=== PATIENT | male | born 1950 | race Caucasian/White ===

== ENCOUNTER 2017-01-05 06:47 | Outpatient (CLI) | payer MEDICARE, OTHER | END 2017-01-05 06:48 | disposition critical access hospital (66) | LOC: EMS 06:47 | PROVIDERS: ATTEND Surgery | DX: R55 Syncope and collapse (principal); R11.0 Nausea; R61 Generalized hyperhidrosis; T63.441A Toxic effect of venom of bees, accidental (unintentional), initial encounter | CPT/HCPCS: A0425; A0429 ==

== ENCOUNTER 2017-01-05 07:16 | Observation (INO) | payer MEDICARE, OTHER ==
[2017-01-05] MEDS ORDERED: SODIUM CHLORIDE FLUSH 0.9% 10 ML SYRINGE IVP ONE (07:41)
--- NOTE | 2017-01-05 07:48 | ED Physician Documentation ---
History of Present Illness - Stated complaint Stated Complaint: BEE STING - CHILLS, NAUSEA,SHAKING - Chief complaint Chief Complaint: General - Additonal information Additional information: hx from pt 66 male pmhx polycythemia vera (WBC runs 27K HCT 50s) and Hep C he and his who is a nurse are visiting the [facility] on [place] - came from [place] he goes barefoot and this AM he stepped on a bee and was stung to the plantar surface on his L foto about 20-30 min later he developed sweats chills and nausea felt faint and so laid down on the ground no hives swelling or SOA his administered an epi pen s change EMS called and found pt afebrile HR 40s to 50s even after epi (baseline per pt and ) pt denies fever no recent cough vomit diarrhea or urinary sx no rash except bruise to RUE for 3 weeks and to RLE for many years he had a similar self limited episode of same sx yesterday without any bee stings and he has a hx of similar sx with vagal rxn to pain Review of Systems Constitutional: reports: Chills, Sweats. denies: Fever Throat: denies: Sore throat Cardiac: denies: Chest pain / pressure, Palpitations Respiratory: denies: Dyspnea, Cough GI: reports: Nausea. denies: Abdominal Pain, Vomiting, Diarrhea : denies: Dysuria Neurologic: reports: Near syncope. denies: Syncope Endocrine: denies: Easy bruising / bleeding Immunocompromised: denies: Immunocompromised PD PAST MEDICAL HISTORY - Past Medical History Past Medical History: Yes Other Past Medical History: polycytopenia - Present Medications Home Medications: Ambulatory Orders Medication Instructions Recorded Confirmed Aspirin Chewable [[facility] 01/05/17 Aspirin] Hydroxyurea [Droxia] 01/05/17 - Allergies Allergies/Adverse Reactions: Allergies Allergy/AdvReac Type Severity Reaction Status Date / Time No Known Drug Allergies Allergy Verified 01/05/17 07:28 - Social History Does the pt smoke?: No Smoking Status: Never smoker PD ED PE NORMAL - Vitals Vital signs reviewed: Yes (HRN normal for him apparently) - General General: Alert and oriented X 3 - HEENT HEENT: PERRL - Neck Neck: Supple, no meningeal sign - Cardiac Cardiac: RRR - Respiratory Respiratory: No respiratory distress, Clear bilaterally - Abdomen Abdomen: Soft, Non tender - Derm Derm: Other (flushed cheeks, aged ecchymosis RUE) - Neuro Neuro: Alert and oriented X 3 - Psych Psych: Normal mood Results - Vitals Vitals: Vital Signs - 24 hr 01/05/17 01/05/17 01/05/17 07:19 09:00 11:30 Temperature 36.3 C L Heart Rate 41 L 59 L 72 Respiratory 18 14 14 Rate Blood Pressure 177/83 H 154/63 H 159/66 H O2 Saturation 100 99 95 Oxygen O2 Source Room air - EKG (time done) 0815 Rate: Rate (enter#) Rhythm: NSR [place]: LAD Ischemia: ST elevation c/w ischemia (V1-V3 but with associated Q waves and coving without ST elev inferior leads) Other comments: Other comments (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) 0926 Rate: Rate (enter#) (44) Rhythm: Sinus bradycardia Ischemia: Other (ST elev with Q waves ant and coving without elev inf) Compare to prior EKG: Unchanged from prior EKG (no dynamic changes from EKG #1) - Labs Labs: Laboratory Tests 01/05/17 01/05/17 01/05/17 08:17 08:17 08:17 WBC 25.9 H RBC 6.39 H Hgb 18.4 H Hct 57.7 H MCV 90.2 MCH 28.7 MCHC 31.8 L RDW 18.4 H Plt Count 275 MPV 8.8 Neut # Not Reportable Lymph # Not Reportable Morris # Not Reportable Eos # Not Reportable Baso # Not Reportable Absolute Nucleated RBC Not Reportable Band Neuts % (Manual) 5 Neutrophils # (Manual) 20.5 H Lymphocytes # (Manual) 2.1 Monocytes # (Manual) 3.1 H Eosinophils # (Manual) 0.3 Nucleated RBCs Not Reportable WBC Morphology 1+ DOHLE BODIES Platelet Estimate NORMAL (130-450,000) Platelet Morphology RARE GIANT PLATELETS RBC Morph Micro Appear NORMAL APPEARANCE Sodium 138 Potassium 3.9 Chloride 100 L Carbon Dioxide 29 Anion Gap 9.0 BUN 14 Creatinine 0.9 Estimated GFR (MDRD) 84 L Glucose 117 H Lactic Acid Calcium 9.4 Troponin I 0.04 01/05/17 08:17 WBC RBC Hgb Hct MCV MCH MCHC RDW Plt Count MPV Neut # Lymph # Morris # Eos # Baso # Absolute Nucleated RBC Band Neuts % (Manual) Neutrophils # (Manual) Lymphocytes # (Manual) Monocytes # (Manual) Eosinophils # (Manual) Nucleated RBCs WBC Morphology Platelet Estimate Platelet Morphology RBC Morph Micro Appear Sodium Potassium Chloride Carbon Dioxide Anion Gap BUN Creatinine Estimated GFR (MDRD) Glucose Lactic Acid 1.5 Calcium Troponin I - Rads (name of study) CXR Radiology: See rad report (per rad patchy right basilar opacity) PD MEDICAL DECISION MAKING - ED course ED course: faxed EKG to Dr Benjamin at [facility] and he does not feel this is a STEMI, also pt sx have now resolved, will check another EKG for dynamic changes and likely obs for serial enzymes and echo EKG # 2 unchanged but 66 male with nausea and diaphoresis and near syncope and newly abn EKG (per who is a nurse) and no other good explanation merits further cardiac work up Departure - Departure Disposition: ED Place in Observation Clinical Impression: Abnormal EKG, Near syncope, Diaphoresis
--- NOTE | 2017-01-05 07:57 | XRAY Preliminary Report ---
Exam: XR Chest 2 View PA/LAT IMPRESSION: 1. Hyperinflation. 2. Patchy right basilar opacity, possibly focal bronchitis versus early consolidation. Findings are i n part accentuated by overlying prominent soft tissue. [facility] SITE ID: [id number]
--- NOTE | 2017-01-05 08:00 | XRAY Report ---
EXAM: CHEST RADIOGRAPHY EXAM DATE: 01/05/2017 07:48 AM. CLINICAL HISTORY: Sweats and shaking chills. COMPARISON: None. TECHNIQUE: 2 views. FINDINGS: Lungs/Pleura: Hyperinflation. Patchy right basilar opacity in part accentuated by overlying soft tiss ue. No vascular congestion. No pneumothorax. No pleural effusions. Mediastinum: Cardiomegaly. Mild aortic tortuosity. Other: Degenerative changes of the thoracic spine. IMPRESSION: 1. Hyperinflation. 2. Patchy right basilar opacity, possibly focal bronchitis versus early consolidation. Findings are i n part accentuated by overlying prominent soft tissue. [facility] Referring Provider Line: [phone] SITE ID: [id number]
[2017-01-05] MEDS: SODIUM CHLORIDE 0.9% 1,000 ML IV ONE ×2 (08:11→10:59)
[2017-01-05 08:39] LABS: BASOPHILS % (AUTO) 0.3 %; EOSINOPHILS % (AUTO) 0.4 %; HCT - HEMATOCRIT 57.7 % (42.0-52.0); HGB - HEMOGLOBIN 18.4 g/dL (14.0-18.0); LYMPHOCYTES % (AUTO) 6.9 %; MEAN CORPUSCULAR HEMOGLOBIN 28.7 pg (27.0-31.0); MEAN CORPUSCULAR HGB CONC 31.8 g/dL (32.0-36.0); MEAN CORPUSCULAR VOLUME 90.2 fL (80.0-94.0); MEAN PLATELET VOLUME 8.8 fL (7.4-11.4); MONOCYTES % (AUTO) 14.8 %; NEUTROPHILS % (AUTO) 77.6 %; RED BLOOD COUNT 6.39 10^6/uL (4.70-6.10); RED CELL DISTRIBUTION WIDTH 18.4 % (12.0-15.0); UNCORRECTED WHITE BLOOD COUNT 25.9 x10^3/uL; WHITE BLOOD COUNT 25.9 x10^3/uL (4.8-10.8)
[2017-01-05 08:42] LABS: CALCIUM 9.4 mg/dL (8.5-10.3); CREATININE 0.9 mg/dL (0.6-1.2); POTASSIUM 3.9 mmol/L (3.5-5.0)
[2017-01-05 09:41] LABS: BAND NEUTROPHILS % (MANUAL) 5 %; EOSINOPHILS % (MANUAL) 1 %; LYMPHOCYTES % (MANUAL) 8 %; NEUTROPHILS % (MANUAL) 74 %
[2017-01-05 09:42] LABS: NP AUTO DIFFERENTIAL? YES; NP MAN DIFFERENTIAL? NO; PLATELET ESTIMATE, MANUAL NORMAL (130-450,000) (NORMAL); PLATELET MORPHOLOGY RARE GIANT PLATELETS (NORMAL)
[2017-01-05 12:24] LABS: BILIRUBIN,URINE NEGATIVE (NEGATIVE)
[2017-01-05 12:26] LABS: UA CHARGE (STRIP ONLY) YES; UR CULTURE IF IND NOT INDICATED
[2017-01-05 13:13] LABS: CALCIUM 8.9 mg/dL (8.5-10.3); CREATININE 0.8 mg/dL (0.6-1.2); MAGNESIUM 1.7 mg/dL (1.7-2.8); POTASSIUM 3.9 mmol/L (3.5-5.0); TOTAL PROTEIN 8.1 g/dL (6.7-8.2)
[2017-01-05] MEDS ORDERED: ACETAMINOPHEN 325 MG TABLET PO PRN (13:37)
[2017-01-05] MEDS ORDERED: SODIUM CHLORIDE FLUSH 0.9% 10 ML SYRINGE IVP PRN (13:37)
[2017-01-05] MEDS ORDERED: MORPHINE 2 MG/ML SYRINGE IVP PRN (13:37)
[2017-01-05] MEDS ORDERED: NITROGLYCERIN SL 0.4 MG TABLET SL PRN (13:56)
[2017-01-05] MEDS ORDERED: ASPIRIN CHEW 81 MG TABLET PO ONE (13:56)
[2017-01-05] MEDS ORDERED: SODIUM CHLORIDE 0.9% 1,000 ML IV SCH (14:00)
[2017-01-05] MEDS ORDERED: PANTOPRAZOLE 40 MG VIAL IVP SCH (14:00)
[2017-01-05] MEDS ORDERED: SODIUM CHLORIDE FLUSH 0.9% 10 ML SYRINGE IVP SCH (14:00)
[2017-01-05] MEDS ORDERED: MAGNESIUM SULFATE 2 GRAM 50 ML IV ONE (15:40)
--- NOTE | 2017-01-05 17:19 | HISTORY & PHYSICAL EXAMINATION ---
DATE OF ADMISSION: 01/05/2017 CHIEF COMPLAINT: Lightheadedness, dizziness today. HISTORY OF PRESENT ILLNESS: The patient is a very pleasant 66-year-old gentleman who was spending the week [facility] on retreat with his when this morning he had stepped out of the bathroom and th ought he had stepped on a wasp and then became hot, flushed, feeling sick and lightheaded, pale and d iaphoretic. The patient's came into the room to assess him. She is a nurse, and instructed him t o lie down on the floor. She states he was cold, clammy, and pale. Knowing that he had stepped on a w asp, she thought this might have been a reaction to the wasp sting and gave him Epi. The patient stat es that after he received the EpiPen, he still continued to feel the same. His did call 911. Whe n 911 arrived, they evaluated him. Vital signs were stable. His blood sugar was within normal limits. The patient states that he had a normal breakfast that morning. He states that there have been no ch anges in his social activities. He had a normal night's sleep. He states that he had been not taking any new type of medication nor had he been around anybody who had been sick recently. SOCIAL HISTORY: The patient's social history does include smoking marijuana. He did state that he smo ked marijuana approximately a week prior to this episode. The patient thought that he might be a sosa le bit dehydrated since he had not drank a significant amount of water that morning. However, he has not drank that much in the past as well and never had an episode like this. PAST MEDICAL HISTORY: The patient's only significant medical history includes polycythemia and a past history of mild hepatitis C. 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 The patient did have a laminectomy back in July 2016 and every now and then does have pain down the left arm and the jaw with tingling; however, this was not a symptom of this particular episode. The p atient denied fever, denied cough, diarrhea, vomiting, or urinary symptoms. He had had a similar epis ode similar to this the day before without the bee sting. He did say that he has had some similar vag al reactions when he has had pain. The patient's brought him to the hospital for further evaluat ion. Of note, they are both visiting from [place] and staying at the [facility]. ALLERGIES: NO KNOWN DRUG ALLERGIES. HOME MEDICATIONS 1. Aspirin 81 mg chewable. 2. Hydroxyurea 100 mg a day. 3. Doxycycline 100 mg a day. Of note, the patient just recently increased his dosage of hydroxyurea to 100 mg a day, which started approximately 3 weeks ago. He was taking 50 mg 3 times a week. PAST MEDICAL HISTORY: Includes polycythemia, marijuana usage, ocular melanoma, history of hepatitis C , chronic upper neck and upper back pain. PAST SURGICAL HISTORY: Includes laminectomy. SOCIAL HISTORY: Includes no smoking. Occasional alcohol usage and marijuana several times a week. FAMILY HISTORY: The patient states that both his parents are , and one from a stroke. REVIEW OF SYSTEMS: The patient denies fever, sore throat, chest pain, pressure, palpitations, cough, abdominal pain, vomiting, or diarrhea. He is positive for chills and sweats and dizziness and nausea. A 10-system review was done and is negative with the exception as discussed in the HPI prior or in r eview of systems just given prior. PHYSICAL EXAMINATION CONSTITUTIONAL: The patient is alert, no acute distress. EYES: Pupils are equal, round, and react to light and accommodation. Conjunctivae and sclerae was non icteric, not injected. ENT: Nares are patent. No nasal discharge. Oropharynx with no masses, exudates, or lesions. Mucous me mbranes were dry. NECK: Supple. No thyromegaly. CARDIOVASCULAR: S1, S2 noted. Normal PMI. No JVD. RESPIRATORY: Breath sounds were clear and equal bilaterally to auscultation and percussion, no retrac tions or nasal flaring, or increased work of breathing. GASTROINTESTINAL: Abdomen was soft, nontender. Bowel sounds were present. No guarding or rebound. SKIN: Warm, dry, and intact. The patient does have rosacea, which is noticed on his cheeks bilaterall y, otherwise no lesions or cellulitis noted. NEUROLOGICAL: He is alert, GCS 15. Cranial nerves 2-12 are grossly intact. Sensory is intact. MUSCULO SKELETAL/EXTREMITIES: The patient has full range of motion with upper and lower extremities. No cyano sis. Pulses are palpable to upper and lower extremities. HEMATOLOGIC: No active bleeding. The patient was hemodynamically stable. LYMPHATICS: No cervical, axillary, supraclavicular lymphadenopathy is noted. VITAL SIGNS: Temperature is 36.3, heart rate was 59, respirations 18, blood pressure was 154/63. PSYCHIATRIC: Behavior was appropriate. Normal mood and cooperative. DIAGNOSTICS AND LABORATORY DATA: Personally reviewed laboratory and diagnostic data in the medical re cord. They are as follows: EKG shows normal sinus rhythm with no ST elevation or ischemia noted. The patient did have V1 through V3 associated Q-waves without ST elevation in the inferior leads. There w as no old EKG to compare to. Chest x-ray shows no acute infiltrate, pneumothorax, or pneumonia. LABORATORY DATA: The abnormals were WBC is 25.9. The patient does have polycythemia, RBCs 6.39, hemog lobin 18.4, hematocrit 37.7, chloride was 100, glucose 117. First troponin was negative at 0.04. ASSESSMENT AND PLAN 1. Acute near syncopal episode with possible cardiac etiology. PLAN: Admit the patient to observation. Will trend cardiac markers with echocardiogram ordered. Sonia nue the patient on aspirin, morphine, nitroglycerin and oxygen supplemental 2 liters nasal cannula to keep sats greater than 92%. Repeat EKG to look for any dynamic changes. 2. Chronic history of polycythemia. PLAN: The patient states that he is supposed to see his medical doctor for bleeding and will need to be back in [place] next week for that. He does do phlebotomy before this. The patient does take hydrox yurea. We will continue at 100 mg a day. Will give IV fluid hydration since patient does seem to be m ildly dehydrated at this time. 3. Chronic cannabis usage without dependence. PLAN: We will continue to monitor the patient's behavior and watch for possible withdrawal symptoms. Ativan p.r.n. if needed. 4. Deep venous thrombosis prophylaxis with sequential compression device and Lovenox subcutaneous. 5. Status: The patient is FULL CODE status. 6. Risk assessment/disposition. The patient is high risk for worsening comorbidities. He will require additional diagnostics and medication as IV with high risk for toxicity. Code status was addressed a t bedside. He will need 1 overnight stay. Time spent on assessment for admission and planning was 45 minutes. JOB #: [id number] EXT JOB #:[id number]
[2017-01-05 18:13] LABS: CHOL/HDL RATIO 2.8 (<5.0); CHOLESTEROL 95 mg/dL; HDL CHOLESTEROL 34 mg/dL; LDL/HDL RATIO 1.4 (<3.6); TRIGLYCERIDES 67 mg/dL; VLDL CHOLESTEROL 13 mg/dL
--- NOTE | 2017-01-05 18:16 | Discharge Plan ---
Discharge Plan Disposition: Home, Self Care Condition: Good Prescriptions: Madison-3S/Dha/Epa/Fish Oil [Madison-3 Fish Oil 1,200 mg Sfgl] 1 each PO BID #60 capsule Diet: Cardiac Activity Restrictions: Activity as Tolerated Shower Restrictions: No Driving Restrictions: No Weight Bearing: Full Weight Instruction Topics: Bradycardia Additional Instructions or Follow Up instructions: PLEASE CONTINUE TO TAKE YOUR HOME MEDICATIONS PRESCRIBED UNTIL YOU SEE YOUR PRIMARY CARE PROVIDER. YOU HAVE BEEN GIVEN OMEGA 3 FISH OIL AND RECOMMEND SUPPLEMENTS OF FOLATE, MAGNESIUM AND COQ10 DAILY. PLEASE EAT A HEART HEALTHY DIET AND RECOMMEND DAILY EXERCISE. WALKING IS A GREAT WAY TO GET THAT EXERCISE PLEASE RETURN TO THE ER IF SYMPTOMS WORSEN OR YOU HAVE CHEST PAIN OR SHORTNESS OF BREATH. YOU NEED TO SEE A BULK STATION AGENT AND RECOMMEND A HEART MONITOR FOR FURTHER EVALUATION OF YOUR CARDIAC RHYTHM. No Smoking: If you smoke, Please STOP! Call for help. Follow-up with: Provider,Other [Primary Care Provider] -
[2017-01-05 18:21] LABS: HEMOGLOBIN A1C 0.7 g/dL
--- NOTE | 2017-01-05 18:21 | DISCHARGE SUMMARY ---
"Discharge Summary Admit Date: 01/05/17 Discharge Date: 01/05/17 Discharging Provider: LEANDRO HAILE APRN Code Status: Attempt Resuscitation Condition at Discharge: Good Discharge Disposition: 01 Home, Self Care Discharge Facility Name: HOME - DIAGNOSES Admission Diagnoses: 1. ACUTE DIZZINESS/WEAKNESS WITH NEAR SYNCOPE. 2. CHRONIC POLYCYTHEMIA VERA 3. CHRONIC CANNABOID USAGE WITHOUT DEPENDENCE 4. CHRONIC ROSEACEA OF SKIN Discharge Diagnoses with Status of Each Condition: 1. ACUTE NEAR SYNCOPE SECONDARY TO BRADYCARDIA WITH MILD LEFT VENTRICULAR HYPERTROPHY AND VAGAL EPISODE 2. CHRONIC POLYCYTHEMIA VERA ON HYDROXYUREA 3. CHRONIC CANNABOID USAGE WITHOUT DEPENDENCE 4. CHRONIC ROSEACEA OF SKIN ON FACE - HPI History of Present Illness: HISTORY OF PRESENT ILLNESS: The patient is a very pleasant 66-year-old gentleman who was spending the week [place] on retreat with his when this morning he had stepped out of the bathroom and thought he had stepped on a wasp and then became hot, flushed, feeling sick and lightheaded, pale and diaphoretic. The patient's came into the room to assess him. She is a nurse , and instructed him to lie down on the floor. She states he was cold, clammy, and pale. Knowing that he had stepped on a wasp, she thought this might have been a reaction to the wasp sting and gave him Epi. The patient states that after he received the EpiPen, he still continued to feel the same. His did call 911. When 911 arrived, they evaluated him. Vital signs were stable. His blood sugar was within normal limits. The patient states that he had a normal breakfast that morning. He states that there have been no changes in his social activities. He had a normal night's sleep. He states that he had been not taking any new type of medication nor had he been around anybody who had been sick recently. - CONSULTS | PROCEDURES Consultations: NONE Procedures: ECHOCARDIOGRAM: IMPRESSION WITH - HOSPITAL COURSE Hospital Course: ASSESSMENT AND PLAN 1. Acute near syncopal episode with possible cardiac etiology. Admitted the patient to observation. trended cardiac markers and were all negative. Echocardiogram performed and showed grade 1 diastolic dysfunction EF 65%. Continued the patient on aspirin, morphine, nitroglycerin and oxygen supplemental 2 liters nasal cannula to keep sats greater than 92%. Repeated EKG to look for any dynamic changes. Both EKG were negative for acute STEMI. Both showed bradycardia 2. Chronic history of polycythemia vera. CBC was followed and remained stable. No acute bleeding. The patient was to see his medical doctor for bleeding and was going to be back in [place] next week for that. He does do phlebotomy before this. The patient continued on home dosage of hydroxyurea 100mg daily. Gave IV fluids for hydration since patient appeared to be mildly dehydrated . 3. Chronic cannabis usage without dependence. Continued to monitor the patient's behavior and watched for possible withdrawal symptoms. Ativan p.r.n. if needed. 4. Deep venous thrombosis prophylaxis with sequential compression device and Lovenox subcutaneous. - ALLERGIES Allergies/Adverse Reactions: Allergies Allergy/AdvReac Type Severity Reaction Status Date / Time No Known Drug Allergies Allergy Verified 01/05/17 07:28 - MEDICATIONS Home Medications: Ambulatory Orders Medication Instructions Recorded Confirmed Aspirin Chewable [[facility] 81 mg PO DAILY 01/05/17 01/05/17 Aspirin] Doxycycline Hyclate 100 mg PO DAILY 01/05/17 01/05/17 Hydroxyurea 1,000 mg PO DAILY 01/05/17 01/05/17 Chelsea-3S/Dha/Epa/Fish Oil [Chelsea-3 1 each PO BID #60 capsule 01/05/17 Fish Oil 1,200 mg Sfgl] - PHYSICAL EXAM AT DISCHARGE General Appearance: positive: No acute distress, Alert Eyes Bilateral: positive: Normal inspection, PERRL, EOMI ENT: positive: ENT inspection nml, Pharynx nml, No signs of dehydration Neck: positive: Nml inspection, Thyroid nml, No JVD, Trachea midline Respiratory: positive: Chest non-tender, No respiratory distress, Breath sounds nml Cardiovascular: positive: No murmur, No gallop, Bradycardia. negative: JVD present Peripheral Pulses: positive: 2+ Abdomen: positive: Non-tender, No organomegaly, Nml bowel sounds, No distention Rectal: positive: Non-tender Back: positive: Nml inspection. negative: CVA tenderness (R), CVA tenderness (L ) Skin: positive: Color nml, No rash, Warm, Dry, Skin rash (TO CHEEKS) Extremities: positive: Non-tender, Full ROM, Nml appearance Neurologic/Psychiatric: positive: Oriented x3, CN's nml (2-12), Motor nml, Sensation nml, Mood/affect nml - LABS Result Diagrams: 01/05/17 08:17 01/05/17 12:48 Other Lab Results: Abnormal Lab Results 01/05/17 01/05/17 01/05/17 08:17 08:17 12:48 WBC 25.9 x10^3/uL H x10^3/uL (4.8-10.8) RBC 6.39 10^6/uL H 10^6/uL (4.70-6.10) Hgb 18.4 g/dL H g/dL (14.0-18.0) Hct 57.7 % H % (42.0-52.0) MCHC 31.8 g/dL L g/dL (32.0-36.0) RDW 18.4 % H % (12.0-15.0) Neutrophils # (Manual) 20.5 10^3/uL H 10^3/uL (1.5-6.6) Monocytes # (Manual) 3.1 10^3/uL H 10^3/uL (0.0-1.0) Chloride 100 mmol/L L mmol/L 100 mmol/L L mmol/L (101-111) (101-111) Estimated GFR (MDRD) 84 L (>89) Glucose 117 mg/dL H mg/dL 172 mg/dL H mg/dL (70-100) (70-100) Estim Average Glucose AST 70 IU/L H IU/L (10-42) ALT 79 IU/L H IU/L (10-60) HDL Cholesterol 01/05/17 01/05/17 17:45 17:45 WBC RBC Hgb Hct MCHC RDW Neutrophils # (Manual) Monocytes # (Manual) Chloride Estimated GFR (MDRD) Glucose Estim Average Glucose 117 H (70-100) AST ALT HDL Cholesterol 34 mg/dL L mg/dL (60 - ) - DIAGNOSTIC IMAGING Diagnostic Imaging Results: Final report reviewed - FOLLOW UP Follow Up: PATIENT WAS INSTRUCTED TO SEE PRIMARY CARE PROVIDER WITHIN ONE WEEK OF DISCHARGE. HE WILL NEED TO SEE CARDIOLOGY FOR HALTER MONITOR FOR BRADYCARDIA. HE WAS TO GO HOME WITH AND VITAL SIGNS WERE STABLE AT DISCHARGE. - TIME SPENT Time Spent in Discharge (Minutes): 45 (FOR DISCHARGE, PLANNING AND ASSESSMENT)"
[2017-01-05 19:38] VITALS: BP 144/92
[2017-01-06] MEDS ORDERED: POLYETHYLENE GLYCOL 3350 17 GM PACKET PO SCH (09:00)
[2017-01-06] MEDS ORDERED: ENOXAPARIN 40 MG/0.4 ML SYRINGE SUBQ SCH (09:00)
== END 2017-01-05 19:46 | disposition home or self-care (01) ==
LOC: ED 07:16 → OBS 11:36
PROVIDERS: ADMIT Nurse Practitioner; ATTEND Nurse Practitioner
DX: R55 Syncope and collapse (principal); R00.1 Bradycardia, unspecified; I51.7 Cardiomegaly; D45 Polycythemia vera; L71.9 Rosacea, unspecified; Z79.82 Long term (current) use of aspirin; Z79.899 Other long term (current) drug therapy; Z85.840 Personal history of malignant neoplasm of eye; Z86.19 Personal history of other infectious and parasitic diseases; Z82.3 Family history of stroke
CPT/HCPCS: 36415; 71020; 80048; 80053; 80061; 81003; 83036; 83605; 83735; 84484; 85025; 86141; 87040; 93005; 93041; 93306; 96361; 96374; 96375; 99284; 99285; A9270; G0378; 81001; 87086; 96360